=== PATIENT | male | born 1965 | race Caucasian/White ===

== ENCOUNTER 2016-04-22 06:08 | Day surgery (SDC) | payer OTHER ==
[~2016-04-22] VITALS: Ht 170.2 cm; Wt 85.0 kg
[~2016-04-22 06:08] MED LIST: FAMO20 PO; GABA-531 PO; IPRA4AER IH; MOME13HF2 IH; MONT10TA21 PO; PERCT10 PO; PRED10 PO; PSEU30TA31 PO; SYMB8060 IH; VITAD50000 PO
[2016-04-22] MEDS ORDERED: SODIUM CHLORIDE 0.9% 1,000 ML IV ONE ×2 (06:15→06:23)
[2016-04-22] MEDS ORDERED: FentaNYL CITRATE-PF 100 MCG/2 ML VIAL ONE (07:25)
[2016-04-22] MEDS ORDERED: MIDAZOLAM HCL 2 MG/2 ML VIAL ONE (07:25)
[2016-04-22] MEDS ORDERED: PNEUMOCOCCAL VACCINE POLYVALENT 0.5 ML VIAL [PPSV23] IM ONE (07:30)
[2016-04-22] MEDS ORDERED: MethylPREDNISolone SOD SUCC 125 MG/2 ML VIAL IVP ONE (08:45)
[2016-04-22] MEDS ORDERED: MethylPREDNISolone SOD SUCC 125 MG/2 ML VIAL ONE (09:20)
[2016-04-22] MEDS ORDERED: BENZOCAINE 20% 50 MCG/SPRAY 57 GM TP ONE (16:45)
[2016-04-22] MEDS ORDERED: ALBUTEROL SULFATE 2.5 MG/0.5 ML NEB SOLUTION NEB ONE (16:45)
[2016-04-22] MEDS ORDERED: LIDOCAINE HCL 2% 30 ML JELLY TP ONE (16:45)
[2016-04-22] MEDS ORDERED: OXYGEN THERAPY IH SCH (20:00)
== END 2016-04-22 10:20 | disposition home or self-care (01) ==
LOC: SURGERY 06:08
PROVIDERS: ATTEND Internal Medicine Critical Care Medicine
DX: J38.4 Edema of larynx (principal); J45.909 Unspecified asthma, uncomplicated; J44.9 Chronic obstructive pulmonary disease, unspecified; M54.9 Dorsalgia, unspecified; M25.569 Pain in unspecified knee; Z23 Encounter for immunization; Z87.891 Personal history of nicotine dependence; Z98.890 Other specified postprocedural states
CPT/HCPCS: 31623; 31624; 71010; 87015 ×2; 87070; 87101; 87147; 87205; 87220; 88108; 88312; 90471; 90732; J2250; J2930; J3010; J7030